=== PATIENT | female | born 1990 | race African-American/Black ===

== ENCOUNTER 2016-06-12 14:06 | Emergency (ER) | payer OTHER ==
[2016-06-12] MEDS ORDERED: Fluorescein Opthalmic Strip ONE (14:25)
[2016-06-12] MEDS ORDERED: Tetracaine HCl 0.5% Ophth Soln 2 ML Bottle ONE (14:25)
== END 2016-06-12 14:47 | disposition home or self-care (01) ==
LOC: BURERS 14:06
DX: S05.91XA Unspecified injury of right eye and orbit, initial encounter (principal); X58.XXXA Exposure to other specified factors, initial encounter

== ENCOUNTER 2016-07-28 08:45 | Emergency (ER) | payer OTHER ==
[2016-07-28] MEDS ORDERED: Doxycycline Hyclate 100 MG TAB ONE (08:58)
== END 2016-07-28 09:13 | disposition home or self-care (01) ==
LOC: BURERS 08:45
DX: L03.211 Cellulitis of face (principal); J45.909 Unspecified asthma, uncomplicated
CPT/HCPCS: 99282

== ENCOUNTER 2017-04-08 17:59 | Emergency (ER) | payer BC, OTHER | END 2017-04-08 19:14 | disposition home or self-care (01) | LOC: BURERS 17:59 | DX: R03.0 Elevated blood-pressure reading, without diagnosis of hypertension (principal); J45.909 Unspecified asthma, uncomplicated | CPT/HCPCS: 99283 ==

== ENCOUNTER 2017-04-12 16:49 | Emergency (ER) | payer BC | END 2017-04-12 17:10 | disposition home or self-care (01) | LOC: BURERS 16:49 | DX: R11.2 Nausea with vomiting, unspecified (principal); R19.7 Diarrhea, unspecified; J45.909 Unspecified asthma, uncomplicated | CPT/HCPCS: 99283 ==

== ENCOUNTER 2017-09-07 17:41 | Emergency (ER) | payer BC | END 2017-09-07 17:57 | disposition home or self-care (01) | LOC: BURERS 17:41 | DX: I10 Essential (primary) hypertension (principal); J45.909 Unspecified asthma, uncomplicated | CPT/HCPCS: 99283 ==

== ENCOUNTER 2017-10-23 11:59 | Emergency (ER) | payer OTHER, BC ==
[2017-10-23] MEDS ORDERED: Ibuprofen 200 MG TAB ONE (12:36)
--- NOTE | 2017-10-23 17:28 | RAD ---
RIGHT ANKLE THREE VIEWS: 10/23/17 Mild soft tissue swelling is present but no fracture was seen. The ankle mortise appears intact. The articular surfaces are smooth. IMPRESSION: No acute findings. POS: HOME
== END 2017-10-23 12:56 | disposition home or self-care (01) ==
LOC: BURERS 11:59
DX: S93.431A Sprain of tibiofibular ligament of right ankle, initial encounter (principal); J45.909 Unspecified asthma, uncomplicated; X50.1XXA Overexertion from prolonged static or awkward postures, initial encounter

== ENCOUNTER 2017-12-15 20:52 | Emergency (ER) | payer BC, OTHER ==
[~2017-12-15 20:52] MED LIST: Iopamidol 370 76% 100 ML VIAL ONE
[2017-12-15] MEDS ORDERED: Ketorolac Tromethamine 30 MG/ML VIAL ONE (21:15)
[2017-12-15 21:23] LABS: Pregnancy Test - Urine (BHCG) Negative (Negative); Pregu Control Background? CLEAR/WHITE (CLR/WHITE); Pregu Control Bar Appear? YES (CONTROL BAR); Specific Gravity 1.026 (1.002-1.036)
[2017-12-15 21:24] LABS: #Basophils 0.1 thou/uL (0.0-0.2); #Eosinphils 0.3 thou/uL (0.0-0.7); #Lymphocytes 2.6 thou/uL (1.20-3.40); #Monocytes 0.4 thou/uL (0.11-0.59); #Neutrophils 2.1 thou/uL (1.40-6.50); %Basophils 1.7 % (0.0-1.0); %Eosinophils 5.2 % (0.0-10.0); %Lymphocytes 47.1 % (21.0-51.0); %Monocytes 7.5 % (0.0-10.0); %Neutrophils 38.6 % (42.0-75.0); Hemoglobin 11.6 g/dL (12.0-16.0); Mean Corpuscular HGB CONC 33.4 g/dL (32.0-36.0); Mean Corpuscular Volume 92.8 fL (78.0-98.0); Platelet Count 276 thou/uL (130-400); RBC Distribution Width 12.8 % (11.5-14.5); Red Blood Cell (RBC) Count 3.76 mill/uL (4.20-5.40); White Blood Cell (WBC) Count 5.4 thou/uL (4.8-10.8)
[2017-12-15 21:25] LABS: Bilirubin Negative (Negative); Blood, Urine Trace (Negative); Clarity Slightly Cloudy (Clear); Glucose, Urine (Dipstick) Negative (Negative); Leukocyte Negative (Negative); Nitrite Negative (Negative); Protein, Urine (Dipstick) Negative (Neg-Trace); Specific Gravity, Urine 1.026 (1.002-1.036); Urobilinogen 0.2 mg/dL (0.2-1.0)
[2017-12-15 21:34] LABS: Squamous Epithelial 0-3 HPF (0-3); WBC/HPF None Seen HPF (0-3)
[2017-12-15 21:35] LABS: Bacteria/HPF Rare-Few HPF (None Seen)
[2017-12-15 21:38] LABS: ALT (SGPT) 13 U/L (8-55); AST (SGOT) 20 U/L (5-34); Albumin 4.4 g/dL (3.5-5.0); Alkaline Phosphatase 52 U/L (40-150); Anion Gap 13 mmol/L (10-20); BUN (Urea Nitrogen) 8 mg/dL (7.0-18.7); Bilirubin, Total 0.4 mg/dL (0.2-1.2); Calc. Creatinine Clearance 0 mL/min (70-130); Calcium 9.4 mg/dL (7.8-10.44); Carbon Dioxide 23 mmol/L (22-29); Chloride 105 mmol/L (98-107); Estimated GFR-MDRD 87; Globulin 3.6 g/dL (2.4-3.5); Glucose 74 mg/dL (70-105); Potassium 3.7 mmol/L (3.5-5.1); Sodium 137 mmol/L (136-145)
--- NOTE | 2017-12-15 22:02 | CT ---
CT ABDOMEN AND PELVIS WITH CONTRAST: 12/15/2017 TECHNIQUE: A spiral CT of the abdomen and pelvis was performed for evaluation of right lower quadrant pain. Axi al slices were acquired after giving IV contrast. Oral contrast was withheld by request. Coronal an d sagittal reconstructions were done afterwards. FINDINGS: The major finding on the study is a 4.5 cm, rounded, cystic lesion in the pelvis, just to the right o f midline and slightly anterior to the uterus. This appears to be related to the right adnexa. An o varian cyst is possible but, given the symptoms and appearance, ovarian torsion should also be seriou sly considered. The appendix is identified separately and appears normal. There is a trace of free fluid. The lung bases are clear, except for some dependent atelectasis. The liver, spleen, pancreas, adrena l glands, gallbladder, kidneys, and abdominal aorta show no acute findings. A subcentimeter cyst or two is suggested in each kidney. The bowel shows no distention. There is no inflammatory change around the bowel. No free air is see n. CT pelvis shows the findings listed above. There are no additional findings aside from those. IMPRESSION: 1. Normal appendix. 2. A 4.5 cm cystic lesion in the right adnexal region; ovarian torsion versus cyst. Pelvic ultrasou nd recommended. Findings discussed with Dr. Garrett at 2142 hours on 12/15/2017. CODE CR POS: HOME
== END 2017-12-15 22:13 | disposition short-term general hospital (02) ==
LOC: BURERS 20:52
DX: N83.201 Unspecified ovarian cyst, right side (principal); J45.909 Unspecified asthma, uncomplicated
CPT/HCPCS: 74177; 80053; 81003; 81015; 81025; 83605; 85025; 96374; A4216; J1885

== ENCOUNTER 2018-06-02 05:06 | Emergency (ER) | payer BC ==
[2018-06-02] MEDS ORDERED: Ibuprofen 200 MG TAB ONE (05:26)
== END 2018-06-02 05:28 | disposition home or self-care (01) ==
LOC: BURERS 05:06
DX: R07.89 Other chest pain (principal); J45.909 Unspecified asthma, uncomplicated

== ENCOUNTER 2019-07-01 00:50 | Emergency (ER) | payer BC ==
[2019-07-01] MEDS ORDERED: AMOXicillin 250 MG CAP ONE (01:05)
== END 2019-07-01 01:13 | disposition home or self-care (01) ==
LOC: BURERS 00:50
DX: K02.9 Dental caries, unspecified (principal); G43.909 Migraine, unspecified, not intractable, without status migrainosus
CPT/HCPCS: 99282